=== PATIENT | female | born 1975 | race African-American/Black ===

== ENCOUNTER 2016-06-13 11:34 | Emergency (ER) | payer OTHER ==
[2016-06-13 11:47] VITALS: BP 101/59; PULSE 94; TEMP 98; BMI 29.5
--- NOTE | 2016-06-13 13:28 | PDOC ---
History of Present Illness - General Chief Complaint: Injury Stated Complaint: FALL, RT EYE INJURY Time Seen by Provider: 06/13/16 12:48 History Source: Patient Exam Limitations: No Limitations - History of Present Illness Initial Comments: 06/13/16 13:29 40 yr female states she slipped and fell out of the bathtub and injured her right shoulder and cut above her right eye. no LOC. 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 tetanus UTD. Occurred: reports: this morning Severity: reports: mild Pain Location: reports: face Method of Injury: Yes: fall Loss of Consciousness: no loss of consciousness Past History - Past Medical History Allergies/Adverse Reactions: Allergies Allergy/AdvReac Type Severity Reaction Status Date / Time No Known Allergies Allergy Verified 06/13/16 11:47 Home Medications: Ambulatory Orders NK [No Known Home Medication] 06/13/16 Asthma: No Cancer: No Cardiac Disorders: No CVA: Yes (tia 2006) Diabetes: No HTN: No Seizures: No Thyroid Disease: No - Surgical History Abdominal Surgery: Yes (BARIATRIC SX.) Gastric Stapling: Yes (SLEEVE.) - Psycho/Social/Smoking Cessation Hx Anxiety: No Suicidal Ideation: No Smoking Status: No Smoking History: Never smoked Have you smoked in the past 12 months: No Number of Cigarettes Smoked Daily: 0 Information on smoking cessation initiated: No Hx Alcohol Use: No Drug/Substance Use Hx: No Substance Use Type: None Hx Substance Use Treatment: No Trauma Specific PMHX - Complaint Specific PMHX Back Injury: Yes Neck Injury: Yes *Physical Exam - Vital Signs Last Vital Signs Temp Pulse Resp BP Pulse Ox 98 F 94 H 18 101/59 98 06/13/16 11:44 06/13/16 11:44 06/13/16 11:44 06/13/16 11:44 06/13/16 11:44 - Physical Exam General Appearance: Yes: Nourished, Appropriately Dressed HEENT: positive: EOMI, JUANJO, TMs Normal, Pharynx Normal, Other (laceration to right upper eyelid under eyebrow) Neck: positive: Supple. negative: Tender Respiratory/Chest: positive: Lungs Clear, Normal Breath Sounds Cardiovascular: positive: Regular Rhythm, Regular Rate Gastrointestinal/Abdominal: positive: Normal Bowel Sounds, Soft Musculoskeletal: positive: Normal Inspection Extremity: positive: Normal Capillary Refill, Normal Inspection, Tender ( posterior rigth shoulder, limited abduction due to pain, nv intact ) Integumentary: positive: Normal Color, Dry, Warm Neurologic: positive: Fully Oriented, Alert, Normal Mood/Affect, Normal Response , Motor Strength 5/5 Procedures - Splinting Sling: Yes - Laceration/Wound Repair Right Face Wound Length: to 2.5 cm Wound Explored: clean Wound's Depth, Shape: linear Irrigated w/ Saline: Yes Betadine Prep: Yes Anesthesia: 1% Lidocaine Wound Repaired With: Sutures Suture Size/Type: 5:0, nylon Number of Sutures: 5 Sterile Dressing Applied: Yes ED Treatment Course - RADIOLOGY Radiology Studies Ordered: Category Date Time Status SHOULDER-RIGHT [RAD] Stat Radiology 06/13/16 13:04 Taken Medical Decision Making - Medical Decision Making 06/13/16 13:37 cc: mechanical fall no LOC injured right shoulder laceration to right upper eyelid after hitting on sink sutured closed , pt agrees with this plan all questions asked and answered about suture care xray right shoulder sling pt took motrin machine captain dc inst explained to pt and her significant other all questions asked and answered 06/13/16 19:06 *DC/Admit/Observation/Transfer Diagnosis at time of Disposition: Laceration AC separation Qualifiers: Encounter type: initial encounter Laterality: right Qualified Code(s): S43.101A - Unspecified dislocation of right acromioclavicular joint, initial encounter - Discharge Dispostion Disposition: HOME Condition at time of disposition: Good - Referrals Referrals: STAFF,NOT ON [Primary Care Provider] - - Patient Instructions Additional Instructions: apply ice to the shoulder every 2hrs for 20 minutes for the next 2 days while awake do not sleep with sling, remove to bathe and sleep do not get the sutures wet, remove the dressing tomorrow and apply a thin layer of bacitracin ointment and recover with bandaid Return in 5 days for suture removal take motrin as needed for pain follow with the orthopedist for follow up if your shoulder continues to cause pain in 5-7 days - Post Discharge Activity Work/School Note: Back to Work
== END 2016-06-13 13:41 | disposition home or self-care (01) ==
LOC: JERFT 11:34
PROC: 08QNXZZ Repair Right Upper Eyelid, External Approach (ICD-10-PCS; principal; 2016-06-13)
DX: S43.084A Other dislocation of right shoulder joint, initial encounter (principal); W18.09XA Striking against other object with subsequent fall, initial encounter; Y93.E1 Activity, personal bathing and showering; Y92.012 Bathroom of single-family (private) house as the place of occurrence of the external cause; Z86.73 Personal history of transient ischemic attack (TIA), and cerebral infarction without residual deficits; Z98.84 Bariatric surgery status
CPT/HCPCS: 73030-TC-RT; 99282-25

== ENCOUNTER 2016-09-15 09:08 | Emergency (ER) | payer OTHER ==
[2016-09-15 09:23] VITALS: BP 124/78; PULSE 80; TEMP 98.6; BMI 29.2
[2016-09-15] MEDS ORDERED: IBUPROFEN 600 MG TABLET (FP) PO ONE ×2 (10:00→10:04)
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
== END 2016-09-15 10:40 | disposition home or self-care (01) ==
LOC: JERFT 09:08
DX: M54.2 Cervicalgia (principal); V89.2XXA Person injured in unspecified motor-vehicle accident, traffic, initial encounter; Y92.410 Unspecified street and highway as the place of occurrence of the external cause; Y93.9 Activity, unspecified; Y99.9 Unspecified external cause status
CPT/HCPCS: 99281-25

== ENCOUNTER 2019-02-06 09:27 | Emergency (ER) | payer OTHER ==
[2019-02-06 09:43] VITALS: TEMP 98.3; BMI 38.4
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
[2019-02-06 11:31] VITALS: BP 124/82; PULSE 84
== END 2019-02-06 11:40 | disposition home or self-care (01) ==
LOC: JERFT 09:27
DX: S13.4XXA Sprain of ligaments of cervical spine, initial encounter (principal); V43.62XA Car passenger injured in collision with other type car in traffic accident, initial encounter; Y92.414 Local residential or business street as the place of occurrence of the external cause; Y93.89 Activity, other specified; Y99.8 Other external cause status; Z86.73 Personal history of transient ischemic attack (TIA), and cerebral infarction without residual deficits; Z87.09 Personal history of other diseases of the respiratory system; Z98.84 Bariatric surgery status
CPT/HCPCS: 99282-25